=== PATIENT | male | born 1970 | race Two or more races ===

== ENCOUNTER 2021-03-25 12:24 | Emergency (ER) | payer OTHER ==
[~2021-03-25] VITALS: Ht 180.3 cm; Wt 108.0 kg
[2021-03-25] MEDS ORDERED: OMEGA-31000 MG (13:00)
[2021-03-25] MEDS ORDERED: VITAMIN C500 MG (13:01)
[2021-03-25] MEDS ORDERED: KETO10TA2 PO (16:29)
[2021-03-25] MEDS ORDERED: ORPHENADRINE C100 MG PO (16:29)
== END 2021-03-25 16:44 ==
LOC: ER 12:24
DX: S60.00XA Contusion of unspecified finger without damage to nail, initial encounter (principal); S90.31XA Contusion of right foot, initial encounter; W22.8XXA Striking against or struck by other objects, initial encounter; Y93.89 Activity, other specified; Y92.89 Other specified places as the place of occurrence of the external cause

== ENCOUNTER 2021-05-07 13:01 | Outpatient (CLI) | payer OTHER ==
[~2021-05-07 13:01] MED LIST: KETO10TA2 PO; OMEGA-31000 MG; ORPHENADRINE C100 MG PO; VITAMIN C500 MG
== END 2021-05-07 13:42 | disposition home or self-care (01) ==
LOC: MRI 13:01
PROVIDERS: ATTEND Physical Medicine & Rehabilitation
DX: M76.821 Posterior tibial tendinitis, right leg (principal)
CPT/HCPCS: 73718

== ENCOUNTER 2021-10-06 07:07 | Outpatient (CLI) | payer OTHER | END 2021-10-06 07:09 | disposition home or self-care (01) | LOC: RAD 07:07 | PROVIDERS: ATTEND Orthopaedic Surgery | DX: M93.271 Osteochondritis dissecans, right ankle and joints of right foot (principal) ==